=== PATIENT | male | born 2005 | race Two or more races ===

== ENCOUNTER 2024-05-27 19:59 | Emergency (ER) | payer OTHER ==
[~2024-05-27] VITALS: Ht 180.3 cm; Wt 72.7 kg
[2024-05-27 21:37] VITALS: BP 135/77; PULSE 78; RESP 18; TEMP 97.9; O2SAT 97
[2024-05-27] MEDS: HYDROcodone-ACET 5/325MG TAB PO ONE (21:50)
[2024-05-27] MEDS ORDERED: IBUP-1454 PO (22:03)
[2024-05-27] MEDS ORDERED: CYCL-837 PO (22:03)
== END 2024-05-27 22:14 | disposition home or self-care (01) ==
LOC: ER 19:59
DX: S70.02XA Contusion of left hip, initial encounter (principal); S80.02XA Contusion of left knee, initial encounter; V29.99XA Rider (driver) (passenger) of other motorcycle injured in unspecified traffic accident, initial encounter; Y93.89 Activity, other specified; Y92.89 Other specified places as the place of occurrence of the external cause; Y99.8 Other external cause status
CPT/HCPCS: 73502; 73562